=== PATIENT | male | born 2000 | race African-American/Black ===

== ENCOUNTER 2020-05-18 01:32 | Emergency (ER) | payer MEDICAID ==
[~2020-05-18] VITALS: Ht 154.9 cm; Wt 47.6 kg
--- NOTE | 2020-05-18 01:36 | NUR ---
PT AAOX4. BIBSELF C/O N/V SINCE 2100 S/P TAKING HYDROCODONE @ 1800. BODY ACHES. PT PLACED IN BED 16 ON MONITOR AND PULSE OX. VSS. NO ACUTE DISTRESS NOTED. MD AT BEDSIDE FOR EVAL. AWAITING ORDERS.
[2020-05-18] MEDS ORDERED: ONDANSETRON HCL/PF 4 MG/2 ML VIAL IVP ONE (02:00)
[2020-05-18] MEDS ORDERED: IV NS 0.9% 1,000 ML BAG IV ONE (02:00)
[2020-05-18] MEDS ORDERED: ONDANSETRON HCL/PF 4 MG/2 ML VIAL ONE (02:01)
[2020-05-18 02:05] LABS: BASOPHILS # (AUTO) 0.1 /CMM (0.0-0.2); BASOPHILS % (AUTO) 0.5 % (0.0-2.0); EOSINOPHILS % (AUTO) 0.2 % (0.0-6.0); HEMATOCRIT 42 % (39-51); HEMOGLOBIN 14.3 g/dL (13.5-17.5); LYMPHOCYTES # (AUTO) 0.6 /CMM (0.8-4.8); MEAN CORPUSCULAR HGB CONC 34 g/dl (31.0-36.0); MEAN CORPUSCULAR VOLUME 92 fL (80-96); MONOCYTES # (AUTO) 0.4 /CMM (0.1-1.30); MONOCYTES % (AUTO) 3.8 % (2.0-12.0); NEUTROPHILS # (AUTO) 9.3 /CMM (1.8-8.9); NEUTROPHILS % (AUTO) 89.5 % (43.0-81.0); PLATELET COUNT (AUTO) 200 /CMM (150-450); RED BLOOD CELL COUNT(AUTO) 4.55 MIL/uL (4.5-6.0); WHITE BLOOD COUNT (AUTO) 10.4 K/uL (4.3-11.0)
--- NOTE | 2020-05-18 02:08 | NUR ---
RADIOLOGY AT BEDSIDE
--- NOTE | 2020-05-18 02:09 | NUR ---
MICHELAID SWABBED, SENT TO LAB.
[2020-05-18 02:13] LABS: CALCIUM, SERUM 9.5 mg/dL (8.5-10.1); CREATININE 1.1 mg/dL (0.6-1.3); POTASSIUM 3.8 mmol/L (3.5-5.1)
[2020-05-18 02:25] LABS: ALBUMIN 4.4 g/dL (3.4-5.0); BILIRUBIN,DIRECT 0.2 mg/dL (0.0-0.2); BILIRUBIN,TOTAL 0.7 mg/dL (0.2-1.0); TOTAL PROTEIN, SERUM 8.5 g/dL (6.4-8.2)
--- NOTE | 2020-05-18 02:40 | NUR ---
LAB CALLED REGARDING NEGATIVE COVID RESULT.
--- NOTE | 2020-05-18 03:29 | NUR ---
IV removed. Catheter intact and site benign. Pressure and 4x4 applied to site. No bleeding noted.Patient discharged to home in stable condition. Written and verbal after care instructions given. Patient verbalizes understanding of instruction. ambulatory with a steady gait noted.
[2020-05-18 03:30] VITALS: BP 121/63
== END 2020-05-18 03:30 | disposition home or self-care (01) ==
LOC: ER 01:37
DX: R11.2 Nausea with vomiting, unspecified (principal); R50.9 Fever, unspecified; Z20.828 Contact with and (suspected) exposure to other viral communicable diseases
CPT/HCPCS: 36415; 71045; 80048; 80076; 83690; 85025; 87426; 96361; 96374; 99284; C9803; J2405; J7030

== ENCOUNTER 2020-11-12 01:15 | Emergency (ER) | payer MEDICAID, OTHER ==
[~2020-11-12] VITALS: Ht 154.9 cm; Wt 48.5 kg
--- NOTE | 2020-11-12 01:20 | NUR ---
pt bibself c/o burning, urgency, and foul smelling urine since November 05. Pt aaox4 breathing evenly and unlabored. Pt took Azo x3 days with no pain relief. Pt attached to monitor and pox. Pt given blanket and call light. MD at bedside
--- NOTE | 2020-11-12 01:31 | NUR ---
urine sent to lab
[2020-11-12 01:50] LABS: BILIRUBIN,URINE MODERATE (NEGATIVE); COLOR,URINE YELLOW (YELLOW); LEUKOCYTE ESTERASE ,URINE LARGE (NEGATIVE); NITRITE, URINE POSITIVE (NEGATIVE); PH,URINE 6.5 (5.0-8.0); PROTEIN,URINE >=300 mg/dl (NEGATIVE); UGLUCOSE NEGATIVE (NEGATIVE)
[2020-11-12 01:55] LABS: BACTERIA,URINE Many /HPF (None Seen); RBC,URINE 81-100 /HPF (0-2); SQUAMOUS EPITHELIAL CELL,UR Few /HPF (None Seen); WBC,URINE TOO NUMEROUS TO COUN /HPF (0-3)
[2020-11-12] MEDS ORDERED: PHENAZOPYRIDINE HCL 200 MG TABLET PO ONE (02:00)
[2020-11-12] MEDS ORDERED: CEPHALEXIN MONOHYDRATE 500 MG CAPSULE PO ONE ×2 (02:00→02:19)
[2020-11-12] MEDS ORDERED: PHEN-704 PO (02:02)
[2020-11-12] MEDS ORDERED: CEPH500T PO (02:02)
[2020-11-12] MEDS ORDERED: PHENAZOPYRIDINE HCL 200 MG TABLET ONE (02:19)
--- NOTE | 2020-11-12 02:22 | NUR ---
Patient discharged to home in stable condition. Written and verbal after care instructions given. Patient verbalizes understanding of instruction. Pt ambulatory with a steady gait
[2020-11-12 02:29] VITALS: BP 100/70
== END 2020-11-12 02:22 | disposition home or self-care (01) ==
LOC: ER 01:15
DX: N30.00 Acute cystitis without hematuria (principal)
CPT/HCPCS: 81001; 87086-TC; 87186-TC